=== PATIENT | female | born 1960 | race Two or more races ===

== ENCOUNTER 2023-04-09 10:51 | Emergency (ER) | payer OTHER ==
[~2023-04-09] VITALS: Ht 162.6 cm; Wt 74.4 kg
[2023-04-09] MEDS ORDERED: EZALLOR SPRINKLE5 MG PO (11:50)
[2023-04-09] MEDS ORDERED: ALENDRONATE SODI5 MG PO (11:50)
[2023-04-09] MEDS ORDERED: TRAZODONE HCL5 GM MC (11:50)
[2023-04-09] MEDS ORDERED: GLUMETZA500 MG PO (11:50)
[2023-04-09] MEDS ORDERED: COZAAR25 MG PO (11:50)
[2023-04-09] MEDS ORDERED: TRULICITY0.75 MG/0. SQ (11:51)
[2023-04-09] MEDS ORDERED: NORFLEX100MG PO (17:19)
[2023-04-09] MEDS ORDERED: RELAFEN DS1000 MG PO (17:23)
== END 2023-04-09 17:41 ==
LOC: ER 10:52
DX: R07.89 Other chest pain (principal); Z88.0 Allergy status to penicillin; Z88.2 Allergy status to sulfonamides; E11.9 Type 2 diabetes mellitus without complications; Z79.84 Long term (current) use of oral hypoglycemic drugs; M85.88 Other specified disorders of bone density and structure, other site; M81.8 Other osteoporosis without current pathological fracture; M19.90 Unspecified osteoarthritis, unspecified site; G47.39 Other sleep apnea; J32.8 Other chronic sinusitis